=== PATIENT | female | born 1985 | race Two or more races ===

== ENCOUNTER 2017-04-03 10:53 | Emergency (ER) | payer SELFPAY ==
[~2017-04-03] VITALS: Ht 160 cm; Wt 60.0 kg
[2017-04-03 10:55] VITALS: BP 149/74
== END 2017-04-03 11:39 | disposition left against medical advice (07) ==
LOC: ER 10:53
DX: R45.851 Suicidal ideations (principal); Z53.21 Procedure and treatment not carried out due to patient leaving prior to being seen by health care provider